=== PATIENT | male | born 1975 | race Hispanic/Latino ===

== ENCOUNTER 2018-03-28 11:14 | Emergency (ER) | payer OTHER ==
[2018-03-28 11:38] VITALS: BP 152/99
--- NOTE | 2018-03-28 11:58 | Emergency Department Report ---
ED Trauma HPI - General Chief Complaint: Multiple Trauma Stated Complaint: LACERATION (R) MIDDLE FINGER Time Seen by Provider: 03/28/18 11:57 Source: patient Exam Limitations: no limitations - History of Present Illness Initial Comments: Patient said while he was up and walk around 11 AM this morning, a heavy metal object fell on top of his right hand and crushed his right 3rd finger leading to a traumatic amputation of the tip of the right 3rd finger. Patient is right- handed. Occurred: just prior to arrival Severity: severe Pain Location: upper extremity Pain Scale (1-10): 1 Method of Injury: direct blow Modifying Factors: improves with: immobilization Loss of Consciousness: no loss of consciousness Associated Symptoms (Fall): denies symptoms Allergies/Adverse Reactions: Allergies No Known Allergies Allergy (Unverified 03/28/18 11:37) ED Review of Systems ROS: Stated complaint: LACERATION (R) MIDDLE FINGER Other details as noted in HPI Comment: All other systems reviewed and negative Constitutional: denies: chills, fever Eyes: denies: eye pain, eye discharge ENT: denies: ear pain, throat pain Respiratory: denies: cough, shortness of breath Cardiovascular: denies: chest pain, palpitations, dyspnea on exertion Endocrine: no symptoms reported Gastrointestinal: denies: abdominal pain, nausea, vomiting, diarrhea Genitourinary: denies: urgency, dysuria Musculoskeletal: denies: back pain, joint swelling Skin: denies: rash, lesions, change in color Neurological: denies: headache, weakness, numbness, paresthesias Psychiatric: denies: anxiety, depression Hematological/Lymphatic: denies: easy bleeding, easy bruising ED Past Medical Hx - Past Medical History Previous Medical History?: No - Surgical History Past Surgical History?: No - Social History Smoking Status: Current Every Day Smoker Substance Use Type: None ED Physical Exam - General Limitations: No Limitations General appearance: alert, in no apparent distress - Head Head exam: Present: atraumatic, normocephalic, normal inspection - Eye Eye exam: Present: normal appearance, PERRL, EOMI Pupils: Present: normal accommodation - ENT ENT exam: Present: normal exam, normal orophraynx, mucous membranes moist - Neck Neck exam: Present: normal inspection, full ROM. Absent: tenderness - Respiratory Respiratory exam: Present: normal lung sounds bilaterally. Absent: respiratory distress, wheezes, rales, rhonchi, stridor - Cardiovascular Cardiovascular Exam: Present: regular rate, normal rhythm, normal heart sounds - GI/Abdominal GI/Abdominal exam: Present: soft, normal bowel sounds. Absent: distended, tenderness, guarding, rebound, rigid - Extremities Exam Extremities exam: Present: normal capillary refill, other (Right 3rd finger distal phalanges traumaic amputation with nail avulsion.) - Back Exam Back exam: Present: normal inspection, full ROM - Neurological Exam Neurological exam: Present: alert, oriented X3, CN II-XII intact - Psychiatric Psychiatric exam: Present: normal affect, normal mood - Skin Skin exam: Present: warm, dry, intact, normal color. Absent: rash ED Course Vital Signs 03/28/18 03/28/18 11:35 11:57 Temperature 98.5 F Pulse Rate 80 Respiratory 18 18 Rate Blood Pressure 152/99 O2 Sat by Pulse 96 99 Oximetry - Reevaluation(s) Reevaluation #1: 03/28/18 12:10 I [address] hand surgeon Dr. Celis at [facility]. He accepted patient for transfer for higher level of care. ED Medical Decision Making - Lab Data Result diagrams: 03/28/18 12:53 03/28/18 12:53 - Radiology Data Radiology results: report reviewed, image reviewed - Medical Decision Making Traumatic amputation of the tip of the right 3rd finger. Critical care attestation.: If time is entered above; I have spent that time in minutes in the direct care of this critically ill patient, excluding procedure time. ED Disposition Clinical Impression: Traumatic amputation of right middle finger Amputation of finger tip Qualifiers: Encounter type: initial encounter Qualified Code(s): S68.129A - Partial traumatic metacarpophalangeal amputation of unspecified finger, initial encounter Disposition[id number] IP Is pt being admited?: No Does the pt Need Aspirin: No Condition: Stable Referrals: PRIMARY CARE,MD [Primary Care Provider] - 3-5 Days Time of Disposition: 12:20
[2018-03-28] MEDS ORDERED: BOOSTRIX IM ONE (12:12)
[2018-03-28] MEDS ORDERED: ANCEF/NS 1 GM/50 ML 1 GM/50 ML BAG IV ONE (12:12)
--- NOTE | 2018-03-28 12:37 | XRay Report ---
RIGHT FINGERS, 2 VIEWS History: Crush injury. Findings: A complex soft tissue injury is identified in the distal third digit with overlying bandage. A subtle tuft fracture of the third digit is suspected. There may be partial amputation of the distal tip of the third digit. The remaining bony structures and joint spaces are within normal limits. Impression: Complex soft tissue injury and tuft fracture involving the distal third digit.
[2018-03-28 13:35] LABS: Basophils # (Auto) 0.1 K/mm3 (0.0-0.1); Basophils % (Auto) 0.5 % (0.0-1.8); Eosinophils # (Auto) 0.3 K/mm3 (0.0-0.4); Eosinophils % (Auto) 2.7 % (0.0-4.3); Lymphocytes % (Auto) 15.6 % (13.4-35.0); Mean Corpuscular HGB Conc 33 % (32-34); Mean Corpuscular Hemoglobin 29 pg (28-32); Mean Corpuscular Volume 87 fl (84-94); Monocytes % (Auto) 7.6 % (0.0-7.3); Platelet Count 271 K/mm3 (140-440); Red Blood Count 5.51 M/mm3 (3.65-5.03); Red Cell Distribution Width 13.7 % (13.2-15.2)
[2018-03-28 13:54] LABS: Alanine Aminotransferase 17 units/L (7-56); Albumin 4.3 g/dL (3.9-5); BUN/Creatinine Ratio 17; Blood Urea Nitrogen 15 mg/dL (9-20); Calcium 9.1 mg/dL (8.4-10.2); Hemolysis Index 8
[2018-03-28 14:08] LABS: INR 1.02 (0.87-1.13); Partial Thromboplastin Time 28.9 Sec. (24.2-36.6)
== END 2018-03-28 14:13 | disposition short-term general hospital (02) ==
LOC: ED 11:14
DX: S68.122A Partial traumatic metacarpophalangeal amputation of right middle finger, initial encounter (principal); F17.200 Nicotine dependence, unspecified, uncomplicated; W23.0XXA Caught, crushed, jammed, or pinched between moving objects, initial encounter; Y93.89 Activity, other specified; Y99.8 Other external cause status; Y92.89 Other specified places as the place of occurrence of the external cause
CPT/HCPCS: 36415; 80053; 85025; 85610; 85730; J0690